=== PATIENT | male | born 1985 | race Caucasian/White ===

== ENCOUNTER 2022-07-13 00:52 | Emergency (ER) | payer BC, MEDICAID ==
[~2022-07-13] VITALS: Ht 170.2 cm; Wt 85.0 kg
[~2022-07-13 00:52] MED LIST: DOCU-28 PO; FERR324T4 PO; PANT40TA54 PO
[2022-07-13] MEDS ORDERED: aspirin 325mg tablet PO ONE (01:10)
[2022-07-13] MEDS ORDERED: ondansetron/PF 4mg/2ml inj IV ONE (01:15)
[2022-07-13] MEDS ORDERED: morphine 4 MG/ML inj SYRINge IV ONE ×2 (01:15→01:45)
[2022-07-13 01:20] LABS: BASOPHILS % (AUTO) 0.5 % (0-1); EOSINOPHILS # (AUTO) 0.1 X10'3 (0-0.9); EOSINOPHILS % (AUTO) 1.1 % (0-6); HEMATOCRIT 44.5 % (42.0-52.0); HEMOGLOBIN 15.4 g/dl (14.0-17.9); LYMPHOCYTES % (AUTO) 21.6 % (21-51); MEAN CORPUSCULAR HEMOGLOBIN 27.3 PG (27.0-31.0); MEAN CORPUSCULAR HGB CONC 34.7 g/dL (33.0-36.5); MEAN CORPUSCULAR VOLUME 78.6 FL (78-98); MEAN PLATELET VOLUME 7.7 FL (7.4-10.4); MONOCYTES # (AUTO) 0.6 X10'3 (0-0.9); MONOCYTES % (AUTO) 6.8 % (2-12); NEUTROPHILS # (AUTO) 6.4 X10'3 (1.8-7.7); PLATELET COUNT 275 X10'3 (140-440); RED BLOOD COUNT 5.66 X10'6 (4.70-6.10); RED CELL DISTRIBUTION WIDTH 13.3 % (11.5-14.5); WHITE BLOOD COUNT 9.1 X10'3 (4.5-11.0)
[2022-07-13] MEDS ORDERED: LIDOcaine Viscous 15ml cup MM ONE (01:20)
[2022-07-13] MEDS ORDERED: mag hydrox/Alum hydrox/simeth 30ml oral suspension PO ONE (01:20)
[2022-07-13 01:30] LABS: ALANINE AMINOTRANSFERASE 56 U/L (12-78); ALBUMIN 4.8 G/DL (3.4-5.0); ALBUMIN/GLOBULIN RATIO 1.6 (1.1-1.5); ALKALINE PHOSPHATASE 82 IU/L (46-116); ANION GAP 10 (8-16); ASPARTATE AMINO TRANSFERASE 29 U/L (10-37); BILIRUBIN,TOTAL 0.3 MG/DL (0.1-1.0); BLOOD UREA NITROGEN 15 MG/DL (7-18); BUN/CREATININE RATIO 13.5 (5.4-32.0); CALCIUM 9.4 MG/DL (8.5-10.1); CHLORIDE 105 MMOL/L (99-107); CREATININE 1.11 MG/DL (0.60-1.10); GLUCOSE 115 MG/DL (70-104); POTASSIUM 3.1 MMOL/L (3.5-5.1); SODIUM 141 MMOL/L (135-145); TOTAL CARBON DIOXIDE 26.2 MMOL/L (24-32); TOTAL PROTEIN 7.8 G/DL (6.4-8.2); eGFR 75 ML/MIN
[2022-07-13] MEDS ORDERED: hydrALAZINE 20mg/ml inj. IV ONE (01:30)
[2022-07-13 01:38] LABS: MAGNESIUM 2.5 MG/DL (1.5-2.4)
[2022-07-13] MEDS ORDERED: famotidine/PF 10 mg/ml inj IV ONE (02:25)
[2022-07-13 02:28] VITALS: BP 139/85
[2022-07-13] MEDS ORDERED: ONDA8TAB13 PO (05:29)
[2022-07-13] MEDS ORDERED: HYDR-3965 PO (05:29)
--- NOTE | 2022-07-13 05:52 | NUR ---
IV DC'D PT BEING DISCHARGED DRESSING APPLIED
== END 2022-07-13 05:53 | disposition home or self-care (01) ==
LOC: ER 00:52
DX: R50.9 Fever, unspecified (principal); R00.1 Bradycardia, unspecified; R10.84 Generalized abdominal pain; R07.89 Other chest pain; R11.0 Nausea; K21.9 Gastro-esophageal reflux disease without esophagitis; Z98.890 Other specified postprocedural states; Z79.899 Other long term (current) drug therapy
CPT/HCPCS: 36415; 71045; 74176; 80053; 83735; 83880; 84484; 85025; 86870; 86885; 86900; 86901; 86902; 93005; 96374; 96375; 96376; 99285; J0360; J2270; J2405; J3490; J7030

== ENCOUNTER 2023-07-22 17:50 | Emergency (ER) | payer BC ==
[~2023-07-22] VITALS: Ht 170.2 cm; Wt 88.5 kg
[~2023-07-22 17:50] MED LIST changes: -DOCU-28 PO; +ONDA8TAB13 PO
[2023-07-22 17:58] VITALS: BP 140/83; PULSE 80; RESP 16; TEMP 98.2; O2SAT 97
== END 2023-07-22 18:12 | disposition home or self-care (01) ==
LOC: ER 17:51
DX: S61.512A Laceration without foreign body of left wrist, initial encounter (principal); X58.XXXA Exposure to other specified factors, initial encounter; Y93.89 Activity, other specified; Y92.89 Other specified places as the place of occurrence of the external cause; Y99.8 Other external cause status
CPT/HCPCS: 12001; 99282